=== PATIENT | male | born 1985 | race Caucasian/White ===

== ENCOUNTER 2017-08-24 04:11 | Emergency (ER) | payer SELFPAY ==
[~2017-08-24] VITALS: Ht 175.3 cm; Wt 72.6 kg
[~2017-08-24 04:11] MED LIST: BPR100T; BSP5T; LORA0.5T; PRM25T PO; RNT150T PO
[2017-08-24] MEDS ORDERED: NS IV 1000 ML 1,000 ML IV ONE (04:13)
[2017-08-24] MEDS ORDERED: FAMOTIDINE 20MG/2ML IV (PEPCID) IVP ONE (04:15)
[2017-08-24] MEDS ORDERED: HYOSCYAMINE 0.125 MG (LEVSIN) TAB SL ONE (04:15)
[2017-08-24] MEDS ORDERED: PROMETHAZINE INJ 25 MG/ML (PHENERGAN) AMP IVP ONE (04:15)
[2017-08-24] MEDS ORDERED: DULO60CA58 (04:21)
[2017-08-24 04:24] LABS: BASOPHILS % (AUTO) 0 % (0-10); EOSINOPHILS % (AUTO) 0 % (0-10); LYMPHOCYTES # (AUTO) 0.5 X 10^3 (1.0-4.0); LYMPHOCYTES % (AUTO) 4 % (12-44); MEAN CORPUSCULAR HEMOGLOBIN 29 PG (25-34); MEAN CORPUSCULAR HGB CONC 34 G/DL (32-36); MEAN CORPUSCULAR VOLUME 85 FL (80-99); MEAN PLATELET VOLUME 10.7 FL (7.4-10.4); MONOCYTES # (AUTO) 0.6 X 10^3 (0.0-1.0); MONOCYTES % (AUTO) 5 % (0-12); NEUTROPHILS # (AUTO) 11.1 X 10^3 (1.8-7.8); NEUTROPHILS % (AUTO) 90 % (42-75); PLATELET COUNT 298 10^3/uL (130-400); RED BLOOD COUNT 5.77 10^6/uL (4.35-5.85); WHITE BLOOD COUNT 12.3 10^3/uL (4.3-11.0)
[2017-08-24 04:46] LABS: BAND NEUTROPHILS 7 %; BASOPHILS % (MANUAL) 0 %; EOSINOPHILS % (MANUAL) 0 %; LYMPHOCYTES % (MANUAL) 2 %; NEUTROPHILS % (MANUAL) 88 %
[2017-08-24 04:48] LABS: ALANINE AMINOTRANSFERASE 26 U/L (0-55); ALBUMIN 5.1 GM/DL (3.2-4.5); ANION GAP 18 MMOL/L (5-14); ASPARTATE AMINO TRANSFERASE 21 U/L (5-34); BILIRUBIN,TOTAL 1.1 MG/DL (0.1-1.0); BLOOD UREA NITROGEN 16 MG/DL (7-18); BUN/CREATININE RATIO 14; CALCIUM 10.7 MG/DL (8.5-10.1); CARBON DIOXIDE 22 MMOL/L (21-32); CHLORIDE 100 MMOL/L (98-107); CREATININE SERUM 1.11 MG/DL (0.60-1.30); GFR ESTIMATED > 60; GLUCOSE 145 MG/DL (70-105); LIPASE 22 U/L (8-78); MAGNESIUM 2.1 MG/DL (1.8-2.4); POTASSIUM 3.7 MMOL/L (3.6-5.0); SODIUM 140 MMOL/L (135-145); TOTAL PROTEIN 9.3 GM/DL (6.4-8.2)
--- NOTE | 2017-08-24 04:52 | ED GI ---
General Chief Complaint: Abdominal/GI Problems Stated Complaint: NAUSEA Nursing Triage Note: C/O N/V/D Sepsis Screen: No Definite Risk Source of Information: Patient Exam Limitations: No Limitations History of Present Illness Time Seen By Provider: 04:13 Initial Comments This 32-year-old gentleman presents to the emergency room with uncontrolled vomiting and diarrhea. Symptoms started a few days ago, eased up, and then resumed again today. He took a total of 12 mg of Zofran at home which did not resolve the vomiting. He took Imodium yesterday but has been unable to keep any oral pills down today. He is chilled but does not have fever. He has minimal epigastric pain. He has had some problems with intermittent chronic vomiting over the past year. He was anxious earlier and thinks he may have been hyperventilating as well. Allergies and Home Medications Allergies Coded Allergies: Penicillins (Unverified Allergy, Mild, 12/11/09) Uncoded Allergies: [id number] (SULFA (SULFONAMIDE ANTIBIOTICS)) (Allergy, Mild, 12/11/09) Home Medications Duloxetine HCl 60 Mg Capsule., (Reported) Review of Systems Constitutional: see HPI EENTM: No Symptoms Reported Respiratory: No Symptoms Reported Cardiovascular: No Symptoms Reported Gastrointestinal: See HPI Genitourinary: No Symptoms Reported Musculoskeletal: no symptoms reported Skin: no symptoms reported Psychiatric/Neurological: No Symptoms Reported Endocrine: No Symptoms Reported Hematologic/Lymphatic: No Symptoms Reported Past Hbdhsof-Cgqigz-Ghgoor Hx Patient Social History Alcohol Use: Denies Use Recreational Drug Use: No Smoking Status: Never a Smoker Recent Foreign Travel: No Contact w/Someone Who Travel: No Recent Infectious Disease Expo: No Surgeries History of Surgeries: No Respiratory History of Respiratory Disorde: No Cardiovascular History of Cardiac Disorders: Yes Cardiac Disorders: High Cholesterol Neurological History of Neurological Disord: No Genitourinary History of Genitourinary Disor: No Gastrointestinal History of Gastrointestinal Di: Yes (recurrent vomiting) Musculoskeletal History of Musculoskeletal Dis: No Endocrine History of Endocrine Disorders: No HEENT History of HEENT Disorders: No Cancer History of Cancer: No Psychosocial History of Psychiatric Problem: Yes Behavioral Health Disorders: Anxiety Integumentary History of Skin or Integumenta: No Blood Transfusions History of Blood Disorders: No Physical Exam Vital Signs VS - Last 72 Hours, by Label 08/24/17 08/24/17 04:15 05:52 Temp 97.2 Pulse 110 94 Resp 18 18 B/P (MAP) 115/74 Pulse Ox 95 99 Capillary Refill : Less Than 3 Seconds General Appearance: WD/WN, mild distress HEENT: PERRL/EOMI, normal ENT inspection Respiratory: lungs clear, normal breath sounds, no respiratory distress, no accessory muscle use Cardiovascular: regular rate, rhythm, no edema, no murmur Gastrointestinal: normal bowel sounds, non tender, soft Extremities: normal inspection, no pedal edema 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, no motor/sensory deficits, alert, oriented x 3, other (anxious) Skin: warm/dry, pallor Progress/Results/Core Measures Results/Orders Lab Results Laboratory Tests Test 08/24/17 04:15 Range/Units White Blood Count 12.3 H 4.3-11.0 10^3/uL Red Blood Count 5.77 4.35-5.85 10^6/uL Hemoglobin 16.7 13.3-17.7 G/DL Hematocrit 49 40-54 % Mean Corpuscular Volume 85 80-99 FL Mean Corpuscular Hemoglobin 29 25-34 PG Mean Corpuscular Hemoglobin Concent 34 32-36 G/DL Red Cell Distribution Width 13.0 10.0-14.5 % Platelet Count 298 130-400 10^3/uL Mean Platelet Volume 10.7 H 7.4-10.4 FL Neutrophils (%) (Auto) 90 H 42-75 % Lymphocytes (%) (Auto) 4 L 12-44 % Monocytes (%) (Auto) 5 0-12 % Eosinophils (%) (Auto) 0 0-10 % Basophils (%) (Auto) 0 0-10 % Neutrophils # (Auto) 11.1 H 1.8-7.8 X 10^3 Lymphocytes # (Auto) 0.5 L 1.0-4.0 X 10^3 Monocytes # (Auto) 0.6 0.0-1.0 X 10^3 Eosinophils # (Auto) 0.0 0.0-0.3 10^3/uL Basophils # (Auto) 0.0 0.0-0.1 10^3/uL Neutrophils % (Manual) 88 % Lymphocytes % (Manual) 2 % Monocytes % (Manual) 3 % Eosinophils % (Manual) 0 % Basophils % (Manual) 0 % Band Neutrophils 7 % Toxic Granulation 1+ Sodium Level 140 135-145 MMOL/L Potassium Level 3.7 3.6-5.0 MMOL/L Chloride Level 100 98-107 MMOL/L Carbon Dioxide Level 22 21-32 MMOL/L Anion Gap 18 H 5-14 MMOL/L Blood Urea Nitrogen 16 7-18 MG/DL Creatinine 1.11 0.60-1.30 MG/DL Estimat Glomerular Filtration Rate > 60 BUN/Creatinine Ratio 14 Glucose Level 145 H 70-105 MG/DL Calcium Level 10.7 H 8.5-10.1 MG/DL Magnesium Level 2.1 1.8-2.4 MG/DL Total Bilirubin 1.1 H 0.1-1.0 MG/DL Aspartate Amino Transf (AST/SGOT) 21 5-34 U/L Alanine Aminotransferase (ALT/SGPT) 26 0-55 U/L Alkaline Phosphatase 62 40-136 U/L Total Protein 9.3 H 6.4-8.2 GM/DL Albumin 5.1 H 3.2-4.5 GM/DL Lipase 22 8-78 U/L Helicobacter pylori IgG Antibody 0.27 0.00-0.79 U/mL Helicobacter pylori Interpretation Negative Negative My Orders Orders - MANOJ ROLDAN MD Cbc With Automated Diff (08/24/17 04:13) Comprehensive Metabolic Panel (08/24/17 04:13) Lipase (08/24/17 04:13) Magnesium (08/24/17 04:13) Saline Lock/Iv-Start (08/24/17 04:13) Ns Iv 1000 Ml (Sodium Chloride 0.9%) (08/24/17 04:13) Famotidine Injection (Pepcid Injection) (08/24/17 04:15) Promethazine Injection (Phenergan Injec (08/24/17 04:15) Hyoscyamine Sl Tablet (Levsin Sl Tablet) (08/24/17 04:15) Manual Differential (08/24/17 04:15) Helicobacter Pylori Lorie Igg (08/24/17 04:53) Lactated Ringers (Lr 1000 Ml Iv Solution (08/24/17 04:54) Scopolamine Patch (Transderm-Scop Patch) (08/24/17 05:30) Medications Given in ED Vital Signs/I&O Vital Sign - Last 12Hours 08/24/17 08/24/17 04:15 05:52 Temp 97.2 Pulse 110 94 Resp 18 18 B/P (MAP) 115/74 Pulse Ox 95 99 Blood Pressure Mean: 88 Progress Note #1: Progress Note Gabriel received 2 L of IV fluids along with promethazine 25 mg IV and Pepcid 20 mg IV. Symptoms improved significantly and he was able to rest. Labs were relatively unremarkable. H. pylori was added to the labs for review at a later time. Progress Note #2: Time: 05:28 Progress Note Patient was feeling much better and resting comfortably when he suddenly began to retch again. A scopolamine patch was ordered for further treatment of nausea. Departure Impression Impression: Primary Impression: Nausea vomiting and diarrhea Disposition: 01 HOME, SELF-CARE Condition: Improved Departure-Patient Inst. Decision time for Depature: 05:03 Referrals: PADMINI YADAV MD (PCP/Family) Primary Care Physician Patient Instructions: Nausea and Vomiting, Adult MANOJ ROLDAN MD Aug 24, 2017 04:52
[2017-08-24] MEDS ORDERED: LACTATED RINGERS 1,000 ML IV ONE (04:54)
[2017-08-24] MEDS ORDERED: SCOPOLAMINE 1.5 MG (TRANSDERM-SCOP) PATCH TD ONE (05:30)
[2017-08-24 05:52] VITALS: BP 115/74
[2017-08-25 08:13] LABS: H PYLOR IGG INT Negative (Negative)
== END 2017-08-24 06:00 | disposition home or self-care (01) ==
LOC: EDUNIT# 04:11 → ER 04:13
DX: R11.2 Nausea with vomiting, unspecified (principal); R19.7 Diarrhea, unspecified; E78.00 Pure hypercholesterolemia, unspecified; F41.9 Anxiety disorder, unspecified
CPT/HCPCS: 36415; 80053; 83690; 83735; 85007; 85027; 86677; 96374; 99283

== ENCOUNTER → 2019-10-08 | Outpatient (CLI) | payer OTHER ==
[~2019-10-08] MED LIST changes: +DULO60CA59
[2019-10-08 10:47] LABS: BASOPHILS % (AUTO) 0 % (0-10); EOSINOPHILS # (AUTO) 0.2 10^3/uL (0.0-0.3); EOSINOPHILS % (AUTO) 3 % (0-10); HEMATOCRIT 44 % (40-54); HEMOGLOBIN 14.5 G/DL (13.3-17.7); LYMPHOCYTES # (AUTO) 1.8 X 10^3 (1.0-4.0); LYMPHOCYTES % (AUTO) 39 % (12-44); MEAN CORPUSCULAR HEMOGLOBIN 29 PG (25-34); MEAN CORPUSCULAR HGB CONC 33 G/DL (32-36); MEAN CORPUSCULAR VOLUME 89 FL (80-99); MEAN PLATELET VOLUME 10.6 FL (7.4-10.4); MONOCYTES # (AUTO) 0.3 X 10^3 (0.0-1.0); MONOCYTES % (AUTO) 7 % (0-12); NEUTROPHILS # (AUTO) 2.3 X 10^3 (1.8-7.8); NEUTROPHILS % (AUTO) 50 % (42-75); PLATELET COUNT 233 10^3/uL (130-400); RED CELL DISTRIBUTION WIDTH 13.1 % (10.0-14.5); WHITE BLOOD COUNT 4.6 10^3/uL (4.3-11.0)
[2019-10-08 11:13] LABS: ALANINE AMINOTRANSFERASE 24 U/L (0-55); ALBUMIN 4.7 GM/DL (3.2-4.5); ALKALINE PHOSPHATASE 49 U/L (40-136); BILIRUBIN,TOTAL 0.4 MG/DL (0.1-1.0); BUN/CREATININE RATIO 14; CALCIUM 9.6 MG/DL (8.5-10.1); CARBON DIOXIDE 28 MMOL/L (21-32); CHLORIDE 105 MMOL/L (98-107); CHOLESTEROL 222 MG/DL (< 200); CREATININE SERUM 0.84 MG/DL (0.60-1.30); GFR ESTIMATED > 60; GLUCOSE 85 MG/DL (70-105); HDL CHOLESTEROL 54 MG/DL (40-60); POTASSIUM 3.8 MMOL/L (3.6-5.0); SODIUM 142 MMOL/L (135-145); TOTAL PROTEIN 7.6 GM/DL (6.4-8.2); TRIGLYCERIDES 91 MG/DL (<150); VLDL CHOLESTEROL 18 MG/DL (5-40)
== END ==
LOC: LAB 10:32
PROVIDERS: ATTEND Nurse Practitioner Family
DX: Z00.00 Encounter for general adult medical examination without abnormal findings (principal); Z13.220 Encounter for screening for lipoid disorders
CPT/HCPCS: 36415; 80053; 80061; 84443; 85025

== ENCOUNTER → 2020-08-08 | Outpatient (CLI) | payer OTHER | LOC: LAB 18:08 | PROVIDERS: ATTEND Emergency Medicine | DX: R53.83 Other fatigue (principal); R09.89 Other specified symptoms and signs involving the circulatory and respiratory systems; Z20.828 Contact with and (suspected) exposure to other viral communicable diseases | CPT/HCPCS: 87635 ==

== ENCOUNTER → 2020-10-24 | Outpatient (CLI) | payer OTHER ==
[2020-10-24 19:48] LABS: HEMOGLOBIN 13.6 g/dL (13.3-17.7); MEAN PLATELET VOLUME 9.8 fL (9.0-12.2); WHITE BLOOD COUNT 5.8 10^3/uL (4.3-11.0)
[2020-10-24 20:01] LABS: ALBUMIN 4.5 GM/DL (3.2-4.5); CHLORIDE 102 MMOL/L (98-107); POTASSIUM 3.9 MMOL/L (3.6-5.0); SODIUM 138 MMOL/L (135-145)
[2020-10-24 20:02] LABS: CALCIUM 9.3 MG/DL (8.5-10.1)
[2020-10-24 20:03] LABS: GLUCOSE 95 MG/DL (70-105); TOTAL PROTEIN 7.7 GM/DL (6.4-8.2); TRIGLYCERIDES 133 MG/DL (<150); VLDL CHOLESTEROL 27 MG/DL (5-40)
[2020-10-24 20:04] LABS: CARBON DIOXIDE 26 MMOL/L (21-32)
[2020-10-24 20:05] LABS: BILIRUBIN,TOTAL 0.3 MG/DL (0.1-1.0)
[2020-10-24 20:07] LABS: ALKALINE PHOSPHATASE 50 U/L (40-136); CREATININE SERUM 0.98 MG/DL (0.60-1.30); GFR ESTIMATED > 60
[2020-10-24 20:08] LABS: BUN/CREATININE RATIO 11; CHOLESTEROL 205 MG/DL (< 200)
[2020-10-24 20:09] LABS: HDL CHOLESTEROL 46 MG/DL (40-60)
[2020-10-24 20:10] LABS: ALANINE AMINOTRANSFERASE 39 U/L (0-55)
== END ==
LOC: LAB 19:24
DX: Z00.00 Encounter for general adult medical examination without abnormal findings (principal); E78.2 Mixed hyperlipidemia
CPT/HCPCS: 36415; 80053; 80061; 84443; 85027

== ENCOUNTER → 2021-01-05 | Outpatient (CLI) | payer OTHER ==
--- NOTE | 2021-01-05 09:30 | Diagnostic Imaging Report ---
PROCEDURE: MR imaging cervical spine without contrast. TECHNIQUE: Multiplanar, multisequence MR imaging of the cervical spine was performed without contrast. INDICATION: Cervical radicular pain. COMPARISON: None. FINDINGS: Normal alignment. Vertebral body heights are preserved. Normal bone marrow signal. No abnormal signal in the cervical spinal cord. The visualized paravertebral soft tissues are unremarkable. At C5-C6, there is a small central disc protrusion resulting in mild spinal canal stenosis. No neuroforaminal narrowing. At C6-C7, there is a large left paracentral disc extrusion measuring up to 1.0 cm in the superior-inferior dimension. This results in moderate to severe spinal canal stenosis and severe left neuroforaminal narrowing. The intervertebral discs are otherwise well-preserved. No other spinal canal or neuroforaminal narrowing in the cervical spine. IMPRESSION: 1. Large disc extrusion at C6-C7 results in moderate to severe spinal canal stenosis and severe left neuroforaminal narrowing. 2. Small disc protrusion at C5-C6 results in only mild spinal canal stenosis . 3. No abnormal signal in the cervical spinal cord. Dictated by: Dictated on workstation # [id number]
== END ==
LOC: RAD 08:32
PROVIDERS: ATTEND Nurse Practitioner
DX: M50.122 Cervical disc disorder at C5-C6 level with radiculopathy (principal); M50.123 Cervical disc disorder at C6-C7 level with radiculopathy; M48.02 Spinal stenosis, cervical region
CPT/HCPCS: 72141

== ENCOUNTER → 2021-02-09 | Outpatient (CLI) | payer OTHER ==
--- NOTE | 2021-02-09 11:56 | Diagnostic Imaging Report ---
INDICATION: Status post cervical spine fusion. COMPARISON: None FINDINGS: Frontal and lateral radiographic views of the cervical spine were obtained and show postsurgical changes of prior anterior fusion at C6-C7. Fusion hardware appears well seated and appropriately positioned. Intervertebral disc space material is also noted and appears appropriately positioned. No unexpected radiopaque foreign bodies are identified. Static alignment is maintained. There is no significant harrison- or retrolisthesis. There is no evidence of jumped facets. No acute osseous abnormalities are identified. IMPRESSION: 1. Expected postsurgical changes of previous anterior fusion at C6-C7. Dictated by: Dictated on workstation # [id number]
== END ==
LOC: RAD 11:22
PROVIDERS: ATTEND Nurse Practitioner
DX: Z98.1 Arthrodesis status (principal)
CPT/HCPCS: 72040

== ENCOUNTER → 2021-04-09 | Outpatient (CLI) | payer OTHER ==
--- NOTE | 2021-04-09 19:21 | Diagnostic Imaging Report ---
EXAMINATION: Cervical spine at 7:10 p.m. INDICATION: Surgery follow-up. AP and lateral views were obtained. As noted on the prior exam of 02/09/2021 there has been an anterior fusion of C6 and C7. The orthopedic hardware remains in good position. The overall appearance of the cervical spine itself has not changed. The intervertebral disc spaces are fairly well-maintained. There is no fracture or acute bony abnormality noted. There is no sign of retropharyngeal edema. The lung apices are clear. IMPRESSION: The fusion of C6-C7 seen previously appears stable. There is no acute abnormality identified. Dictated by: Dictated on workstation # [id number]
== END ==
LOC: RAD 18:56
PROVIDERS: ATTEND Emergency Medicine
DX: Z48.89 Encounter for other specified surgical aftercare (principal); M43.22 Fusion of spine, cervical region
CPT/HCPCS: 72040

== ENCOUNTER → 2021-09-15 | Outpatient (CLI) | payer OTHER ==
[2021-09-15 20:25] LABS: BASOPHILS # (AUTO) 0.1 10^3/uL (0.0-0.1); BASOPHILS % (AUTO) 1 % (0-10); EOSINOPHILS # (AUTO) 0.3 10^3/uL (0.0-0.3); EOSINOPHILS % (AUTO) 4 % (0-10); HEMATOCRIT 44 % (40-54); HEMOGLOBIN 14.5 g/dL (13.3-17.7); LYMPHOCYTES # (AUTO) 2.6 10^3/uL (1.0-4.0); LYMPHOCYTES % (AUTO) 36 % (12-44); MEAN CORPUSCULAR HEMOGLOBIN 29 pg (25-34); MEAN CORPUSCULAR HGB CONC 33 g/dL (32-36); MEAN CORPUSCULAR VOLUME 88 fL (80-99); MEAN PLATELET VOLUME 10.4 fL (9.0-12.2); MONOCYTES # (AUTO) 0.7 10^3/uL (0.0-1.0); MONOCYTES % (AUTO) 9 % (0-12); NEUTROPHILS # (AUTO) 3.7 10^3/uL (1.8-7.8); NEUTROPHILS % (AUTO) 51 % (42-75); PLATELET COUNT 259 10^3/uL (130-400); WHITE BLOOD COUNT 7.2 10^3/uL (4.3-11.0)
[2021-09-15 20:36] LABS: ALBUMIN 4.6 GM/DL (3.2-4.5); CHLORIDE 103 MMOL/L (98-107); POTASSIUM 3.8 MMOL/L (3.6-5.0); SODIUM 139 MMOL/L (135-145)
[2021-09-15 20:38] LABS: CALCIUM 9.3 MG/DL (8.5-10.1)
[2021-09-15 20:39] LABS: GLUCOSE 91 MG/DL (70-105)
[2021-09-15 20:40] LABS: TRIGLYCERIDES 226 MG/DL (<150); VLDL CHOLESTEROL 45 MG/DL (5-40)
[2021-09-15 20:40] LABS: CARBON DIOXIDE 22 MMOL/L (21-32)
[2021-09-15 20:41] LABS: BILIRUBIN,TOTAL 0.3 MG/DL (0.1-1.0)
[2021-09-15 20:42] LABS: ALKALINE PHOSPHATASE 47 U/L (40-136)
[2021-09-15 20:43] LABS: CREATININE SERUM 1.09 MG/DL (0.60-1.30); GFR ESTIMATED 77
[2021-09-15 20:44] LABS: BUN/CREATININE RATIO 9
[2021-09-15 20:45] LABS: CHOLESTEROL 209 MG/DL (< 200)
[2021-09-15 20:46] LABS: HDL CHOLESTEROL 47 MG/DL (40-60)
[2021-09-15 20:46] LABS: ALANINE AMINOTRANSFERASE 44 U/L (0-55)
== END ==
LOC: LAB 19:46
DX: Z13.220 Encounter for screening for lipoid disorders (principal); R53.83 Other fatigue
CPT/HCPCS: 36415; 80053; 80061; 85025